=== PATIENT | male | born 1960 | race Two or more races ===

== ENCOUNTER → 2023-09-09 | Outpatient (CLI) | payer OTHER ==
--- NOTE | 2023-09-09 16:11 | XR ---
3 views right knee. DATE: 09/09/2023. COMPARISON: None available. CLINICAL HISTORY: Right knee pain. FINDINGS: There is mild tricompartmental osteoarthritis with marginal areas of spurring. Vascular calcification is seen posterior to the knee and leg below the knee. There is no knee joint effusion. There is no fracture, subluxation or dislocation. IMPRESSION: Mild degenerative changes with no acute osseous abnormality.
== END | disposition home or self-care (01) ==
LOC: RADXRMAIN 15:40
DX: M17.11 Unilateral primary osteoarthritis, right knee (principal); F10.20 Alcohol dependence, uncomplicated